=== PATIENT | male | born 1985 | race African-American/Black ===

== ENCOUNTER 2016-12-08 15:29 | Emergency (ER) | payer BC ==
--- NOTE | 2016-12-08 15:34 | ER Document Report ---
ED Medical Screen (RME) - General TRAVEL OUTSIDE OF THE [place] IN LAST 30 DAYS: No <BEAVERCIARA - Last Filed: 12/08/16 15:33> <LEW APPLE - Last Filed: 12/10/16 05:43> - General Stated Complaint: VOMITING/STOMACH PAIN Notes: 31 yo male c/o generalized abdominal pain with nausea and vomiting since last night. no diarrhea no fever abd soft (CIARA BEAVER) - Related Data Allergies/Adverse Reactions: No Known Allergies Allergy (Verified 12/08/16 15:33) Past Medical History Neurological Medical History: Reports: Hx Seizures - LAST SEIZURE 10-15 YRS AGO - Immunizations Immunizations up to date: No <CIARA BEAVER - Last Filed: 12/08/16 15:33> Course - Laboratory Result Diagrams: 12/08/16 15:35 12/08/16 15:35 <LEW APPLE - Last Filed: 12/10/16 05:43> - Vital Signs Vital signs: Temp Pulse Resp BP Pulse Ox 97.7 F 53 L 18 126/75 H 100 12/08/16 20:07 12/08/16 20:07 12/08/16 20:07 12/08/16 20:07 12/08/16 20:07 - Laboratory Laboratory results interpreted by me: 12/08/16 15:35 Sodium 149.5 H Chloride 108 H BUN 5 L AST 14 L Doctor's Discharge <BEAVERCIARA - Last Filed: 12/08/16 15:33> <LEW APPLE - Last Filed: 12/10/16 05:43> - Discharge Clinical Impression: Abdominal pain, Nausea and vomiting Condition: Stable Disposition: HOME, SELF-CARE Instructions: Family Physicians / Practices Additional Instructions: ABDOMINAL PAIN: There are many causes of abdominal pain. Pain can mean a serious problem requiring surgery (such as appendicitis). It can also be an innocent problem that goes away on its own (such as a viral infection). Often, time must pass to determine the cause of pain. The physician does not feel that hospitalization is necessary, at present. Things may change within the next 24 hours. Call the doctor or come back for re- examination if any problems occur, such as: (1) Pain that becomes more severe, steady, or becomes concentrated in one specific area. Also, pain that is more severe with movement or coughing. (2) Vomiting that persists or becomes more frequent. (3) Blood in the vomitus, urine, or bowel movements. Blood in the stool may have a tarry or black appearance. (4) Shaking chills or fever greater than 100 degrees F. (5) The abdomen becomes more distended or swollen. (6) Bowel movements cease. (7) Failure to improve as expected. VOMITING: Vomiting (or nausea without vomiting) can be caused by many other different problems. It can mean that something's wrong with the stomach, such as ulcers or inflammation or the intestinal tract, such as appendicitis. But it can also be a symptom of a problem that has nothing to do with the stomach or intestines. Vomiting is common with severe headaches, earaches, tonsillitis, and kidney infections, etc. We see it with pneumonia or heart attacks. Drugs can cause nausea and vomiting. Many abdominal problems cause vomiting; for example, gallstones, kidney stones, pancreatitis, and intestinal obstruction ( blocked bowels). In most cases, curing the vomiting depends on fixing the problem that caused it. For temporary relief, we may use an anti-nausea medicine. For home use, we can prescribe suppositories, chewable pills, pills that dissolve in the mouth, or liquid anti-nausea drugs. If the vomiting seems to be caused by a problem in the stomach, acid-suppressing drugs may be prescribed as well. It's important to avoid dehydration. Sip small amounts of clear liquids ( soft drinks, tea, broth, etc) . Try to take fluids frequently even if you are vomiting to prevent dehydration. Take increasing amounts of fluid and when liquids are being consumed successfully, advance to small amounts of bland food (toast, soups, mashed potatoes, etc.) until you are able to resume a regular diet. Avoid aspirin, tobacco, and alcohol. If the vomiting worsens, if the problem that's making you vomit worsens, or if there's evidence of bleeding in the stomach (such as black, tarry stool, or bloody or black vomit), you should return immediately. Also, return if abdominal pain worsens or becomes localized to one area or you develop high fever. Call your doctor if you aren't improved in 24 hours. VIRAL SYNDROME: The physician has diagnosed a viral infection. Viruses not only cause "colds," but can cause many different symptoms including generalized aching, fever, headache, cough, diarrhea, nausea, vomiting, and fatigue. The treatment, for the most part, is simply relief of symptoms. This means that antibiotics are usually not given. Rest, fluids, pain medications and, occasionally, medication for the specific symptoms that are most bothersome will be prescribed. Use good handwashing to avoid passing the virus to others. Shared toys should be cleaned with disinfectant. Clean the toilets, sinks, and counter surfaces in bathrooms. Launder clothing in hot water. Contact the physician if you develop any new or unusual symptoms such as severe headache, stiff neck, high fever, chest pain, productive cough, or shortness of breath. You should be rechecked if you don't see marked improvement within seven to 10 days. ANTINAUSEA MEDICATION: You have been given a medication to suppress nausea and vomiting. This type of medication can be given as a shot, pill, or suppository. It will usually last for many hours. Pills and shots usually last six to eight hours. For the typical illness, only one or two doses of the medication may be necessary. Mild lightheadedness may occur. This type of medicine can cause drowsiness. Do not drive or operate dangerous machinery while under its influence. Do not mix with alcohol. See your doctor at once if you have muscle spasms or tightness, or uncontrollable motions (particularly of the neck, mouth, or jaw). Persistent vomiting or severe lightheadedness should also be evaluated by the physician. FOLLOW-UP CARE: If you have been referred to a physician for follow-up care, call the physician s office for an appointment as you were instructed or within the next two days. If you experience worsening or a significant change in your symptoms, notify the physician immediately or return to the Emergency Department at any time for re-evaluation. Prescriptions: Ondansetron [Zofran Odt 4 mg Tablet] 1 tab PO Q6H #15 tab.rapdis Forms: Elevated Blood Pressure, Return to Work
[2016-12-08] MEDS ORDERED: ONDANSETRON 4 MG TAB.RAPDIS PO ONE (15:35)
[2016-12-08 16:00] LABS: ABSOLUTE BASOPHILS # (AUTO) 0.1 10^3/uL (0.0-0.2); ABSOLUTE EOSINOPHILS # (AUTO) 0.3 10^3/uL (0.0-0.6); ABSOLUTE LYMPHOCYTES (AUTO) 3.1 10^3/uL (0.5-4.7); ABSOLUTE MONOCYTES (AUTO) 0.7 10^3/uL (0.1-1.4); ABSOLUTE NEUT (AUTO) 4.2 10^3/uL (1.7-8.2); BASOPHILS % (AUTO) 0.8 % (0-2); EOSINOPHILS % (AUTO) 3.2 % (0-6); HEMATOCRIT 44.1 % (37.9-51.0); HGB HCT DIFFERENCE 0.9; MEAN CORPUSCULAR HEMOGLOBIN 29.9 pg (27.0-33.4); MEAN CORPUSCULAR HGB CONC 34.1 g/dL (32.0-36.0); MEAN CORPUSCULAR VOLUME 88 fl (80-97); MONOCYTES % (AUTO) 8.5 % (3-13); RED BLOOD COUNT 5.03 10^6/uL (4.35-5.55); RED CELL DISTRIBUTION WIDTH 12.6 % (11.5-14.0); SEGMENTED NEUTROPHILS % (AUTO) 50.5 % (42-78); WHITE BLOOD COUNT 8.4 10^3/uL (4.0-10.5)
[2016-12-08 16:12] LABS: APPEARANCE,URINE CLEAR; BILIRUBIN,URINE NEGATIVE (NEGATIVE); GLUCOSE, URINE NEGATIVE (NEGATIVE); KETONES,URINE NEGATIVE (NEGATIVE); LEUKOCYTE ESTERASE,URINE NEGATIVE (NEGATIVE); NITRITE,URINE NEGATIVE (NEGATIVE); PROTEIN,URINE NEGATIVE (NEGATIVE); UROBILINOGEN,URINE NEGATIVE mg/dL (<2.0)
[2016-12-08 16:20] LABS: ALANINE AMINOTRANSFERASE 24 U/L (21-72); ALBUMIN 4.4 g/dL (3.5-5.0); ALKALINE PHOSPHATASE 56 U/L (38-126); ANION GAP 13 (5-19); ASPARTATE AMINO TRANSFERASE 14 U/L (17-59); BILIRUBIN,DIRECT 0.1 mg/dL (0.0-0.4); BILIRUBIN,TOTAL 0.5 mg/dL (0.2-1.3); BLOOD UREA NITROGEN 5 mg/dL (7-20); CALCIUM 10.1 mg/dL (8.4-10.2); CARBON DIOXIDE 29 mmol/L (22-30); CHLORIDE 108 mmol/L (98-107); CREATININE RESULT 0.81 mg/dL (0.52-1.25); GLUCOSE 99 mg/dL (75-110); LIPASE 80.4 U/L (23-300); POTASSIUM 4.6 mmol/L (3.6-5.0); SODIUM 149.5 mmol/L (137-145); TOTAL PROTEIN 6.7 g/dL (6.3-8.2)
--- NOTE | 2016-12-08 19:56 | ER Document Report ---
ED GI/ - General Chief Complaint: Vomiting Stated Complaint: VOMITING/STOMACH PAIN Time seen by provider: 19:00 Mode of Arrival: Ambulatory Notes: 31-year-old male presents to ED for nausea and vomiting in generalized abdominal pain since last night. He states he had about a half a glass of vodka last night with his dental nothing since then. Last vomited at 2 PM had Zofran in RME and has drank a Gatorade in the emergency room. No nausea and vomiting at this time. Denies tenderness to the abdomen states that he does have a little cramps once in a while but no tenderness. TRAVEL OUTSIDE OF THE [place] IN LAST 30 DAYS: No - HPI Patient complains to provider of: Abdominal pain, Vomiting Onset: Yesterday Timing/Duration: Intermittent Quality of pain: Cramping Severity at maximum: Severe Severity in ED: Almost gone Pain Level: 1 Location: Other - Generalized Associated symptoms: Nausea, Vomiting Exacerbated by: Denies Relieved by: Denies Similar symptoms previously: Yes Recently seen / treated by doctor: No - Related Data Allergies/Adverse Reactions: No Known Allergies Allergy (Verified 12/08/16 15:33) Past Medical History - General Information source: Patient - Social History Smoking Status: Current Every Day Smoker Cigarette use (# per day): Yes Chew tobacco use (# tins/day): No Smoking Education Provided: Yes - less than 2 minutes Frequency of alcohol use: Occasional Drug Abuse: None Occupation: [employer] for [employer] Lives with: Alone Family History: DM Patient has suicidal ideation: No Patient has homicidal ideation: No - Past Medical History Cardiac Medical History: Reports: None Pulmonary Medical History: Reports: None EENT Medical History: Reports: None Neurological Medical History: Reports: Hx Seizures - LAST SEIZURE 10-15 YRS AGO Endocrine Medical History: Reports: None Renal/ Medical History: Reports: None Malignancy Medical History: Reports None GI Medical History: Reports: None Musculoskeltal Medical History: Reports None Skin Medical History: Reports None Psychiatric Medical History: Reports: None Traumatic Medical History: Reports: None Infectious Medical History: Reports: None Surgical Hx: Negative - Immunizations Immunizations up to date: No Review of Systems - Review of Systems Constitutional: Recent illness EENT: No symptoms reported Cardiovascular: No symptoms reported Respiratory: No symptoms reported Gastrointestinal: Abdominal pain, Nausea, Vomiting Genitourinary: No symptoms reported Male Genitourinary: No symptoms reported Musculoskeletal: No symptoms reported Skin: No symptoms reported Hematologic/Lymphatic: No symptoms reported Neurological/Psychological: No symptoms reported -: Yes All other systems reviewed and negative Physical Exam - Vital signs Vitals: Temp Pulse Resp BP Pulse Ox 98.4 F 91 16 136/87 H 94 12/08/16 15:32 12/08/16 15:32 12/08/16 15:32 12/08/16 15:32 12/08/16 15:32 Interpretation: Normal - General General appearance: Appears well, Alert - HEENT Head: Normocephalic, Atraumatic Eyes: Normal Pupils: PERRL - Respiratory Respiratory status: No respiratory distress Chest status: Nontender Breath sounds: Normal Chest palpation: Normal - Cardiovascular Rhythm: Regular Heart sounds: Normal auscultation Murmur: No - Abdominal Inspection: Normal Distension: No distension Bowel sounds: Normal Tenderness: Nontender. No: Tender Organomegaly: No organomegaly - Back Back: Normal, Nontender - Extremities General upper extremity: Normal inspection, Nontender, Normal color, Normal ROM , Normal temperature General lower extremity: Normal inspection, Nontender, Normal color, Normal ROM , Normal temperature, Normal weight bearing. No: Rosario's sign - Neurological Neuro grossly intact: Yes Cognition: Normal Orientation: AAOx4 George Coma Scale Eye Opening: Spontaneous [place] Coma Scale Verbal: Oriented George Coma Scale Motor: Obeys Commands George Coma Scale Total: 15 Speech: Normal Motor strength normal: LUE, RUE, LLE, RLE Sensory: Normal - Psychological Associated symptoms: Normal affect, Normal mood - Skin Skin Temperature: Warm Skin Moisture: Dry Skin Color: Normal Course - Re-evaluation Re-evalutation: 12/08/16 20:09 Patient states he is having some minimal cramping at times no abdominal tenderness states she has not had any vomiting since 2 PM was able to drink the entire Gatorade with no nausea or vomiting. States he would like a work note for today like to go back to work tomorrow. States he would like a prescription for the Zofran that he had earlier in case he gets nauseated again. - Vital Signs Vital signs: Temp Pulse Resp BP Pulse Ox 98.4 F 91 16 136/87 H 94 12/08/16 15:32 12/08/16 15:32 12/08/16 15:32 12/08/16 15:32 12/08/16 15:32 - Laboratory Result Diagrams: 12/08/16 15:35 12/08/16 15:35 Laboratory results interpreted by me: 12/08/16 15:35 Sodium 149.5 H Chloride 108 H BUN 5 L AST 14 L Discharge - Discharge Clinical Impression: Abdominal pain Qualifiers: Abdominal location: generalized Qualified Code(s): R10.84 - Generalized abdominal pain Nausea and vomiting Qualifiers: Vomiting type: unspecified Vomiting Intractability: non-intractable Qualified Code(s): R11.2 - Nausea with vomiting, unspecified Condition: Stable Disposition: HOME, SELF-CARE Instructions: Family Physicians / Practices Additional Instructions: ABDOMINAL PAIN: There are many causes of abdominal pain. Pain can mean a serious problem requiring surgery (such as appendicitis). It can also be an innocent problem that goes away on its own (such as a viral infection). Often, time must pass to determine the cause of pain. The physician does not feel that hospitalization is necessary, at present. Things may change within the next 24 hours. Call the doctor or come back for re- examination if any problems occur, such as: (1) Pain that becomes more severe, steady, or becomes concentrated in one specific area. Also, pain that is more severe with movement or coughing. (2) Vomiting that persists or becomes more frequent. (3) Blood in the vomitus, urine, or bowel movements. Blood in the stool may have a tarry or black appearance. (4) Shaking chills or fever greater than 100 degrees F. (5) The abdomen becomes more distended or swollen. (6) Bowel movements cease. (7) Failure to improve as expected. VOMITING: Vomiting (or nausea without vomiting) can be caused by many other different problems. It can mean that something's wrong with the stomach, such as ulcers or inflammation or the intestinal tract, such as appendicitis. But it can also be a symptom of a problem that has nothing to do with the stomach or intestines. Vomiting is common with severe headaches, earaches, tonsillitis, and kidney infections, etc. We see it with pneumonia or heart attacks. Drugs can cause nausea and vomiting. Many abdominal problems cause vomiting; for example, gallstones, kidney stones, pancreatitis, and intestinal obstruction ( blocked bowels). In most cases, curing the vomiting depends on fixing the problem that caused it. For temporary relief, we may use an anti-nausea medicine. For home use, we can prescribe suppositories, chewable pills, pills that dissolve in the mouth, or liquid anti-nausea drugs. If the vomiting seems to be caused by a problem in the stomach, acid-suppressing drugs may be prescribed as well. It's important to avoid dehydration. Sip small amounts of clear liquids ( soft drinks, tea, broth, etc) . Try to take fluids frequently even if you are vomiting to prevent dehydration. Take increasing amounts of fluid and when liquids are being consumed successfully, advance to small amounts of bland food (toast, soups, mashed potatoes, etc.) until you are able to resume a regular diet. Avoid aspirin, tobacco, and alcohol. If the vomiting worsens, if the problem that's making you vomit worsens, or if there's evidence of bleeding in the stomach (such as black, tarry stool, or bloody or black vomit), you should return immediately. Also, return if abdominal pain worsens or becomes localized to one area or you develop high fever. Call your doctor if you aren't improved in 24 hours. VIRAL SYNDROME: The physician has diagnosed a viral infection. Viruses not only cause "colds," but can cause many different symptoms including generalized aching, fever, headache, cough, diarrhea, nausea, vomiting, and fatigue. The treatment, for the most part, is simply relief of symptoms. This means that antibiotics are usually not given. Rest, fluids, pain medications and, occasionally, medication for the specific symptoms that are most bothersome will be prescribed. Use good handwashing to avoid passing the virus to others. Shared toys should be cleaned with disinfectant. Clean the toilets, sinks, and counter surfaces in bathrooms. Launder clothing in hot water. Contact the physician if you develop any new or unusual symptoms such as severe headache, stiff neck, high fever, chest pain, productive cough, or shortness of breath. You should be rechecked if you don't see marked improvement within seven to 10 days. ANTINAUSEA MEDICATION: You have been given a medication to suppress nausea and vomiting. This type of medication can be given as a shot, pill, or suppository. It will usually last for many hours. Pills and shots usually last six to eight hours. For the typical illness, only one or two doses of the medication may be necessary. Mild lightheadedness may occur. This type of medicine can cause drowsiness. Do not drive or operate dangerous machinery while under its influence. Do not mix with alcohol. See your doctor at once if you have muscle spasms or tightness, or uncontrollable motions (particularly of the neck, mouth, or jaw). Persistent vomiting or severe lightheadedness should also be evaluated by the physician. FOLLOW-UP CARE: If you have been referred to a physician for follow-up care, call the physician s office for an appointment as you were instructed or within the next two days. If you experience worsening or a significant change in your symptoms, notify the physician immediately or return to the Emergency Department at any time for re-evaluation. Prescriptions: Ondansetron [Zofran Odt 4 mg Tablet] 1 tab PO Q6H #15 tab.rapdis Forms: Elevated Blood Pressure, Return to Work
[2016-12-08 20:08] VITALS: BP 126/75
== END 2016-12-08 20:10 | disposition home or self-care (01) ==
LOC: ER 15:29
DX: R11.2 Nausea with vomiting, unspecified (principal); R10.84 Generalized abdominal pain; F17.210 Nicotine dependence, cigarettes, uncomplicated; Z71.6 Tobacco abuse counseling
CPT/HCPCS: 99284; 36415; 83690; 85025; 80053; 81001; S0119

== ENCOUNTER 2018-03-25 08:15 | Emergency (ER) | payer OTHER, BC ==
[2018-03-25 08:27] VITALS: BP 121/74
[2018-03-25] MEDS ORDERED: TETRACAINE HCL 0.5% OPH SOLN 2 ML ONE (08:56)
[2018-03-25] MEDS ORDERED: TETRACAINE HCL 0.5% OPH SOLN 4 ML OD ONE ×2 (09:00→09:15)
--- NOTE | 2018-03-25 09:04 | ER Document Report ---
HPI - HPI Patient complains to provider of: right eye irritation Onset: This morning Onset/Duration: Sudden Quality of pain: No pain, Other - feels like something in eye Pain Level: 2 Context: She presents emergency department with complaints of right eye irritation. Patient reports he works at the [employer] was wearing safety glasses and working with dust when he felt like something went in his eye. He reports he had to leave work. Reports he is not having any trouble seeing out of the eye just feels irritated like something is in it. Reports clear tears. Associated Symptoms: None Exacerbated by: Denies Relieved by: Denies Similar symptoms previously: No Recently seen / treated by doctor: No Past Medical History - General Information source: Patient - Social History Smoking Status: Current Every Day Smoker Cigarette use (# per day): Yes Chew tobacco use (# tins/day): No Frequency of alcohol use: Social Drug Abuse: None Occupation: [employer] Family History: DM Patient has suicidal ideation: No Patient has homicidal ideation: No Neurological Medical History: Reports: Hx Seizures - LAST SEIZURE 10-15 YRS AGO Renal/ Medical History: Denies: Hx Peritoneal Dialysis - Immunizations Immunizations up to date: No Vertical Provider Document - CONSTITUTIONAL Agree With Documented VS: Yes Exam Limitations: No Limitations General Appearance: WD/WN, No Apparent Distress - INFECTION CONTROL TRAVEL OUTSIDE OF THE [place] IN LAST 30 DAYS: No - HEENT HEENT: Atraumatic, Normocephalic, PERRLA. negative: Conjuctival Injection - NECK Neck: Normal Inspection, Supple - RESPIRATORY Respiratory: Breath Sounds Normal, No Respiratory Distress - CARDIOVASCULAR Cardiovascular: Regular Rate - MUSCULOSKELETAL/EXTREMETIES Musculoskeletal/Extremeties: MITCHELL MOLINA - NEURO Level of Consciousness: Awake, Alert, Appropriate Motor/Sensory: No Motor Deficit - DERM Integumentary: Warm, Dry Course - Re-evaluation Re-evalutation: 03/25/18 Tetracaine placed in the right eye patient reports immediate relief of irritation. Right eye exam benign. Patient instructed on plan of care to include follow-up with ophthalmology if he continues to feel like something is in his eye. - Vital Signs Vital signs: Temp Pulse Resp BP Pulse Ox 98.3 F 68 16 121/74 99 03/25/18 08:26 03/25/18 08:26 03/25/18 08:26 03/25/18 08:26 03/25/18 08:26 Procedures - Eye Procedure Right Eye Irrigated w/ Saline (ccs): 20 Alcaine Drops Administered: Yes - tetracaine Fluorescein applied: Right Slit lamp used: No Notes: 03/25/18 09:10 paez lamp utilized, patient reports immediate relief after application, no fb noted, no abrasion noted Discharge - Discharge Clinical Impression: Irritation of right eye Condition: Stable Disposition: HOME, SELF-CARE Instructions: Opthalmology Additional Instructions: *You have been evaluated for eye irritation *Good hand washing- Do not reuse wash clothes or towels after wiping eyes *Follow up with an financial planning assistant Tuesday if your eye is still bothering you *Return to ED for worsening condition, changes, needs, vision changes, pain Forms: Return to Work
[2018-03-25] MEDS ORDERED: TETRACAINE HCL 0.5% OPH SOLN 2 ML OD ONE (10:00)
== END 2018-03-25 09:27 | disposition home or self-care (01) ==
LOC: ER 08:15
DX: H57.8 Other specified disorders of eye and adnexa (principal); F17.210 Nicotine dependence, cigarettes, uncomplicated
CPT/HCPCS: 99283

== ENCOUNTER 2018-04-01 11:01 | Emergency (ER) | payer BC, OTHER ==
--- NOTE | 2018-04-01 11:49 | ER Document Report ---
ED General - General Chief Complaint: Abdominal Pain Stated Complaint: ABDOMINAL PAIN Time Seen by Provider: 04/01/18 11:47 TRAVEL OUTSIDE OF THE [place] IN LAST 30 DAYS: No - HPI Patient complains to provider of: Diarrhea abdominal pain Notes: Patient coming in for approximate 24 hours of diarrhea and lower abdominal pain. Patient states whenever he has abdominal pain he does have episodes of diarrhea. Patient denies any nausea vomiting. Denies any recent travel states no other sick contacts. Patient resting comfortably upon my evaluation. - Related Data Allergies/Adverse Reactions: No Known Allergies Allergy (Verified 04/01/18 11:02) Past Medical History - Social History Smoking Status: Unknown if Ever Smoked Family History: DM Neurological Medical History: Reports: Hx Seizures - LAST SEIZURE 10-15 YRS AGO Renal/ Medical History: Denies: Hx Peritoneal Dialysis - Immunizations Immunizations up to date: No Review of Systems - Review of Systems Constitutional: No symptoms reported EENT: No symptoms reported Cardiovascular: No symptoms reported Respiratory: No symptoms reported Gastrointestinal: Abdominal pain, Diarrhea Genitourinary: No symptoms reported Male Genitourinary: No symptoms reported Musculoskeletal: No symptoms reported Skin: No symptoms reported Hematologic/Lymphatic: No symptoms reported Neurological/Psychological: No symptoms reported -: Yes All other systems reviewed and negative Physical Exam - Vital signs Vitals: Temp Pulse Resp BP Pulse Ox 97.6 F 63 16 120/84 97 04/01/18 11:13 04/01/18 11:13 04/01/18 11:13 04/01/18 11:13 04/01/18 11:13 Interpretation: Normal - General General appearance: Appears well, Alert - HEENT Head: Normocephalic, Atraumatic Eyes: Normal Pupils: PERRL - Respiratory Respiratory status: No respiratory distress Chest status: Nontender Breath sounds: Normal Chest palpation: Normal - Cardiovascular Rhythm: Regular Heart sounds: Normal auscultation Murmur: No - Abdominal Inspection: Normal Distension: No distension Bowel sounds: Normal Tenderness: Nontender Organomegaly: No organomegaly - Back Back: Normal, Nontender - Extremities General upper extremity: Normal inspection, Nontender, Normal color, Normal ROM , Normal temperature General lower extremity: Normal inspection, Nontender, Normal color, Normal ROM , Normal temperature, Normal weight bearing. No: Rosario's sign - Neurological Neuro grossly intact: Yes Cognition: Normal Orientation: AAOx4 [place] Coma Scale Eye Opening: Spontaneous [place] Coma Scale Verbal: Oriented [place] Coma Scale Motor: Obeys Commands [place] Coma Scale Total: 15 Speech: Normal Motor strength normal: LUE, RUE, LLE, RLE Sensory: Normal - Psychological Associated symptoms: Normal affect, Normal mood - Skin Skin Temperature: Warm Skin Moisture: Dry Skin Color: Normal Course - Re-evaluation Re-evalutation: 04/01/18 13:14 The patient presents with abdominal pain without signs of peritonitis or other life-threatening or serious etiology. The patient appears stable for discharge and has been instructed to return immediately if the symptoms worsen in any way , or in 8-12hr if not improved for re-evaluation. The patient has been instructed to return if the symptoms worsen or change in any way. - Vital Signs Vital signs: Temp Pulse Resp BP Pulse Ox 97.6 F 62 18 128/85 H 100 04/01/18 11:13 04/01/18 13:34 04/01/18 13:34 04/01/18 13:34 04/01/18 13:34 Discharge - Discharge Clinical Impression: Abdominal pain Qualifiers: Abdominal location: unspecified location Qualified Code(s): R10.9 - Unspecified abdominal pain Diarrhea Qualifiers: Diarrhea type: unspecified type Qualified Code(s): R19.7 - Diarrhea, unspecified Condition: Good Disposition: HOME, SELF-CARE Instructions: Abdominal Pain ([facility]), Diarrhea, Nonspecific ([facility]), Gastroenteritis (adult) ([facility]) Additional Instructions: Your physical examination today x-ray did not show any critical pathology. More likely a virus causing her symptoms. I will send you home with Sang to help out with the abdominal pain that she may have the may take the Zofran as prescribed for any nausea that may occur. I would recommend sticking to a bland diet for the next few days. Return to ER symptoms worsen follow-up with your primary care physician. Prescriptions: Dicyclomine HCl [Bentyl 20 mg Tablet] 20 mg PO QID #20 tablet Ondansetron [Zofran Odt] 4 mg PO Q6 PRN #30 tab.rapdis PRN Reason: For Nausea/Vomiting Forms: Return to Work
--- NOTE | 2018-04-01 12:29 | RADIOLOGY REPORT (SQ) ---
EXAM DESCRIPTION: ACUTE ABDOMEN SERIES COMPLETED DATE/TIME: 04/01/2018 12:01 pm REASON FOR STUDY: diarrhea abd pain COMPARISON: None. NUMBER OF VIEWS: Three views. TECHNIQUE: Frontal chest, supine abdomen and upright/decubitus abdomen radiographic images acquired. LIMITATIONS: None. FINDINGS: CHEST: Lungs clear of infiltrates. FREE AIR: None. No abnormal gas collections. BOWEL GAS PATTERN: Nonobstructive pattern. No dilated loops or air fluid levels. CALCIFICATIONS: No suspicious calcifications. HARDWARE: None in the abdomen. SOFT TISSUES: No gross mass or suggestion of organomegaly. BONES: No acute fracture. No worrisome bone lesions. OTHER: No other significant finding. IMPRESSION: NO RADIOGRAPHIC EVIDENCE FOR ACUTE ABDOMINAL DISEASE. TECHNICAL DOCUMENTATION: JOB ID: [id number] [employer]- All Rights Reserved Reading location - IP/workstation name: [email or web address]
[2018-04-01 13:36] VITALS: BP 128/85
== END 2018-04-01 13:39 | disposition home or self-care (01) ==
LOC: ER 11:01
DX: R19.7 Diarrhea, unspecified (principal); R10.30 Lower abdominal pain, unspecified
CPT/HCPCS: 74022; 99284

== ENCOUNTER 2018-04-09 15:37 | Emergency (ER) | payer BC, OTHER ==
[2018-04-09 15:54] VITALS: BP 139/80
--- NOTE | 2018-04-09 16:37 | ER Document Report ---
ED Neck/Back Problem - General Chief Complaint: Pain Stated Complaint: NECK/LEG PAIN Time Seen by Provider: 04/09/18 16:05 Mode of Arrival: Ambulatory Information source: Patient Notes: 32-year-old male presents to ED for complaint of pain in his neck and then from his waist down. Patient has a hit history of seizures had not had a seizure in a long time. He states he is on Depakote ER that he has taken for a long time. He states the pain just started this morning when he woke up he did not remember any accident or injuries. Patient is alert and oriented respirations regular and unlabored. Sentences. He does have a droop to the left side of his face. He states that he had developed palsy in the past and is never really returned to normal. He states he has not had a CT since before this or after this. TRAVEL OUTSIDE OF THE [place] IN LAST 30 DAYS: No - HPI Patient complains to provider of: Pain, Neck Onset: This morning Where: Home, Indoors Onset: Gradual Timing: Still present Quality of pain: Burning, Sharp Severity: Severe Pain Level: 5 Recent injury: No Associated symptoms: Radiation to arm, Radiation to leg, Other - Neck and head pain pain down his legs Exacerbated by: Movement of neck Relieved by: Nothing Similar symptoms previously: No Recently seen / treated by doctor: No - Related Data Allergies/Adverse Reactions: No Known Allergies Allergy (Verified 04/01/18 11:02) Past Medical History - General Information source: Patient - Social History Smoking Status: Current Every Day Smoker Cigarette use (# per day): Yes - One half pack per day Smoking Education Provided: Yes - 4 minutes Frequency of alcohol use: Occasional Drug Abuse: None Occupation: [employer] Lives with: Alone Family History: DM Patient has suicidal ideation: No Patient has homicidal ideation: No - Past Medical History Cardiac Medical History: Reports: None Pulmonary Medical History: Reports: None EENT Medical History: Reports: None Neurological Medical History: Reports: Hx Seizures - LAST SEIZURE 10-15 YRS AGO , Other - Robertson's palsy Endocrine Medical History: Reports: None Renal/ Medical History: Reports: None Malignancy Medical History: Reports None GI Medical History: Reports: None Musculoskeletal Medical History: Reports None Skin Medical History: Reports None Psychiatric Medical History: Reports: None Traumatic Medical History: Reports: None Infectious Medical History: Reports: None Surgical Hx: Negative Past Surgical History: Reports: None - Immunizations Immunizations up to date: No Review of Systems - Review of Systems Constitutional: No symptoms reported EENT: No symptoms reported Cardiovascular: No symptoms reported Respiratory: No symptoms reported Gastrointestinal: No symptoms reported Genitourinary: No symptoms reported Male Genitourinary: No symptoms reported Musculoskeletal: Back pain, Muscle pain, Muscle stiffness, Neck pain Skin: No symptoms reported Hematologic/Lymphatic: No symptoms reported Neurological/Psychological: Other - Left-sided states has been present for about 6 years -: Yes All other systems reviewed and negative Physical Exam - Vital signs Vitals: Temp Pulse Resp BP Pulse Ox 98.9 F 62 18 139/80 H 98 04/09/18 15:51 04/09/18 15:51 04/09/18 15:51 04/09/18 15:51 04/09/18 15:51 Interpretation: Normal - General General appearance: Appears well, Alert - HEENT Head: Normocephalic, Atraumatic Eyes: Normal Pupils: PERRL Ears: Normal External canal: Normal Tympanic membrane: Normal Sinus: Normal Nasal: Normal Mouth/Lips: Normal Mucous membranes: Normal Pharynx: Normal Neck: Normal Notes: Left-sided facial droop patient states that has been there for 6 years since he had Robertson's palsy, patient has 5/5 strength to flexion extension and rotation of neck. He states he has some pain with any movement but has full range of motion of neck - Respiratory Respiratory status: No respiratory distress Chest status: Nontender Breath sounds: Normal Chest palpation: Normal - Cardiovascular Rhythm: Regular Heart sounds: Normal auscultation Murmur: No - Abdominal Inspection: Normal Distension: No distension Bowel sounds: Normal Tenderness: Nontender Organomegaly: No organomegaly - Back Back: Normal, Nontender - Extremities General upper extremity: Normal inspection, Nontender, Normal color, Normal ROM , Normal temperature General lower extremity: Normal inspection, Nontender, Normal color, Normal ROM , Normal temperature, Normal weight bearing. No: Rosario's sign - Neurological Neuro grossly intact: Yes Cognition: Normal Orientation: AAOx4 [place] Coma Scale Eye Opening: Spontaneous George Coma Scale Verbal: Oriented [place] Coma Scale Motor: Obeys Commands [place] Coma Scale Total: 15 Speech: Normal Motor strength normal: LUE, RUE, LLE, RLE Sensory: Normal - Psychological Associated symptoms: Normal affect, Normal mood - Skin Skin Temperature: Warm Skin Moisture: Dry Skin Color: Normal Course - Re-evaluation Re-evalutation: 04/09/18 21:[address] Martinez, he agreed that we should go ahead and do the CT of the head and neck. CT head and neck were both negative. Patient has full range of motion of head and neck and body. Patient instructed to follow- up with his neurologist who takes care of his seizures by: Them in the morning and schedule a follow-up appointment. Patient does not have any fevers at this time. Patient is able to walk with a even steady gait. Patient was discharged home. - Vital Signs Vital signs: Temp Pulse Resp BP Pulse Ox 98.9 F 62 18 139/80 H 98 04/09/18 15:51 04/09/18 15:51 04/09/18 15:51 04/09/18 15:51 04/09/18 15:51 - Diagnostic Test Radiology reviewed: Image reviewed, Reports reviewed Discharge - Discharge Clinical Impression: Neck pain, Body aches Condition: Stable Disposition: HOME, SELF-CARE Instructions: Family Physicians / Practices Additional Instructions: He was seen today for neck pain started this morning when he woke up. He denies any known injuries. CT of the neck and head are negative he stated that she had Robertson's palsy in the past and the drip to the left side of the face is been present for several years. You treated with ibuprofen and will be discharged home with instructions on Tylenol and ibuprofen and muscle relaxers. Please follow-up with your neurologist. USE OF TYLENOL (ACETAMINOPHEN): Acetaminophen may be taken for pain relief or fever control. It's much safer than aspirin, offering a wider range of "safe" dosages. It is safe during . Some brand names are Tylenol, Panadol, Datril, Anacin 3, Tempra, and Liquiprin. Acetaminophen can be repeated every four hours. The following are maximum recommended dosages: WEIGHT Dose Drops Elixir Chewable( 80mg) (LBS.) drprs=droppers tsp=teaspoon 6 40 mg 0.4 ml (1/2) 6-11 80 mg 0.8 ml (full) tsp 1 tab 12-16 120 mg 1 1/2 drprs 3/4 tsp 1 1/2 tabs 17-23 160 mg 2 drprs 1 tsp 2 tabs 24-30 240 mg 3 drprs 1 1/2 tsp 3 tabs 30-35 320 mg 2 tsp 4 tabs 36-41 360 mg 2 1/4 tsp 4 1/2 tabs 42-47 400 mg 2 1/2 tsp 5 tabs 48-53 480 mg 3 tsp 6 tabs 54-59 520 mg 3 1/4 tsp 6 1/2 tabs 60-64 560 mg 3 1/2 tsp 7 tabs 65-70 600 mg 3 3/4 tsp 7 1/2 tabs 71-76 640 mg 4 tsp 8 tabs 77-82 720 mg 4 1/2 tsp 9 tabs 83-88 800 mg 5 tsp 10 tabs >89 pounds or adults 650 mg to 900 mg Acetaminophen can be repeated every four hours. Maximum dose not to exceed 4000 mg a day. These maximum recommended dosages are slightly higher than the dosages written on the product container, but these dosages are very safe and below the toxic dosage for acetaminophen. USE OF [id number] IBUPROFEN: Ibuprofen (Advil, Nuprin, Medipren, Motrin IB) is a medication for fever and pain control. In addition, it has anti- inflammatory effects which may be beneficial, especially in the treatment of injuries. It's best to take ibuprofen with food. Persons with ulcer disease or allergy to aspirin should notify their physician of this before taking ibuprofen. Ibuprofen can be given every four to six hours, for a total of four doses daily. Age Pain or fever dose Antiinflammatory dose 6-8 yr 200 mg (1 tab) 200 mg (1 tab) 9-11 yr 200 mg (1 tab) 200-400 mg (1-2 tab) 11-14 yr 200-400 mg (1-2 tab) 400 mg (2 tab) 15-adult 400 mg (2 tab) 600 mg (3 tab) ICE PACKS: Apply ice packs frequently against the painful area. Many different schedules are recommended, such as "20 minutes on, 20 minutes off" or "one hour ice, two hours rest." If you need to work, you may need to go longer between ice treatments. You should plan to have the area ice packed AT LEAST one fourth of the time. The ice should be applied over the wrap, tape, or splint, or over a layer of cloth -- not directly against the skin. Some ice bags have a built-in cloth and can be put directly on the skin. WARM PACKS: After approximately two days, apply gentle heat (such as a heating pad or hot water bottle) for about 20 to 30 minutes about every two hours -- at least four times daily. Warmth and elevation will help you make a more rapid recovery , and will ease the pain considerably. Do not use HOT heat, and never apply heat for longer than 30 minutes. The continuous heat can invisibly damage skin and muscles -- even when no burn is seen on the surface. Damaged muscles can make you MORE sore. MUSCLE RELAXERS: Muscle relaxing medications are usually prescribed for acute muscle spasm or injury to the neck and back. They are often combined with antiinflammatory pain medication for increased relief. You may stop the muscle relaxer when the pain and stiffness have improved. Start the medication again if spasms recur. Muscle relaxers may cause drowsiness, especially with the first dose. Do not operate machinery or drive while under the effects of the medication. Most muscle relaxers last up to 24 hours. Do not combine the medication with alcohol. FOLLOW-UP CARE: If you have been referred to a physician for follow-up care, call the physician s office for an appointment as you were instructed or within the next two days. If you experience worsening or a significant change in your symptoms, notify the physician immediately or return to the Emergency Department at any time for re-evaluation. Prescriptions: Ibuprofen 600 mg PO Q6HP PRN #20 tablet PRN Reason: Cyclobenzaprine HCl [Flexeril 10 mg Tablet] 10 mg PO TIDP PRN #15 tab PRN Reason: Forms: Elevated Blood Pressure, Return to Work
--- NOTE | 2018-04-09 16:59 | RADIOLOGY REPORT (SQ) ---
EXAM DESCRIPTION: CT HEAD WITHOUT COMPLETED DATE/TIME: 04/09/2018 4:51 pm REASON FOR STUDY: pain in neck COMPARISON: None. TECHNIQUE: Axial images acquired through the brain without intravenous contrast. Images reviewed wi th bone, brain and subdural windows. Additional sagittal and coronal reconstructions were generated. Images stored on PACS. All CT scanners at this facility use dose modulation, iterative reconstruction, and/or weight based d osing when appropriate to reduce radiation dose to as low as reasonably achievable (ALARA). [facility]: Dose Right [facility]: CareDose [facility]: Dose Right [facility]: Teradose 4D [facility]: Smart [employer] RADIATION DOSE: CT Rad equipment meets quality standard of care and radiation dose reduction techniq ues were employed. CTDIvol: 53.2 mGy. DLP: 937 mGy-cm. mGy. LIMITATIONS: None. FINDINGS: VENTRICLES: Normal size and contour. CEREBRUM: No masses. No hemorrhage. No midline shift. No evidence for acute infarction. Normal gra y/white matter differentiation. No areas of low density in the white matter. CEREBELLUM: No masses. No hemorrhage. No alteration of density. No evidence for acute infarction. EXTRAAXIAL SPACES: No fluid collections. No masses. ORBITS AND GLOBE: No intra- or extraconal masses. Normal contour of globe without masses. CALVARIUM: No fracture. PARANASAL SINUSES: No fluid or mucosal thickening. SOFT TISSUES: No mass or hematoma. OTHER: No other significant finding. IMPRESSION: NORMAL BRAIN CT WITHOUT CONTRAST. EVIDENCE OF ACUTE STROKE: NO. COMMENT: Quality ID # [id number]: Final reports with documentation of one or more dose reduction techniques (e.g., Automated exposure control, adjustment of the mA and/or kV according to patient size, use of iterative reconstruction technique) TECHNICAL DOCUMENTATION: JOB ID: [id number] [employer]- All Rights Reserved Reading location - IP/workstation name: [email or web address]
--- NOTE | 2018-04-09 17:00 | RADIOLOGY REPORT (SQ) ---
EXAM DESCRIPTION: CT CERVICAL SPINE WITHOUT COMPLETED DATE/TIME: 04/09/2018 4:51 pm REASON FOR STUDY: pain in neck COMPARISON: None. TECHNIQUE: Axial images acquired through the cervical spine without intravenous contrast. Images re viewed with lung, soft tissue and bone windows. Reconstructed coronal and sagittal MPR images review ed. Images stored on PACS. All CT scanners at this facility use dose modulation, iterative reconstruction, and/or weight based d osing when appropriate to reduce radiation dose to as low as reasonably achievable (ALARA). [facility]: Dose Right [facility]: CareDose [facility]: Dose Right [facility]: Teradose 4D [facility]: [employer] RADIATION DOSE: CT Rad equipment meets quality standard of care and radiation dose reduction techniq ues were employed. CTDIvol: 22.2 mGy. DLP: 456 mGy-cm. mGy. LIMITATIONS: None. FINDINGS: ALIGNMENT: Anatomic. MINERALIZATION: Normal. VERTEBRAL BODIES: No fractures or dislocation. DISCS: No significant disc disease. FACETS, LATERAL MASSES, POSTERIOR ELEMENTS: No fractures. No dislocation. No acute findings. HARDWARE: None in the spine. VISUALIZED RIBS: No fractures. LUNG APICES AND SOFT TISSUES: No significant or acute findings. OTHER: No other significant finding. IMPRESSION: NO ACUTE OR SIGNIFICANT FINDINGS IN THE CERVICAL SPINE. TECHNICAL DOCUMENTATION: JOB ID: [id number] Quality ID # [id number]: Final reports with documentation of one or more dose reduction techniques (e.g., Au tomated exposure control, adjustment of the mA and/or kV according to patient size, use of iterative reconstruction technique) 2010 [employer]- All Rights Reserved Reading location - IP/workstation name: [email or web address]
== END 2018-04-09 17:40 | disposition home or self-care (01) ==
LOC: ER 15:37
DX: M54.2 Cervicalgia (principal); R29.810 Facial weakness; R51 Headache; M54.9 Dorsalgia, unspecified; M79.606 Pain in leg, unspecified; R56.9 Unspecified convulsions; Z79.899 Other long term (current) drug therapy; F17.210 Nicotine dependence, cigarettes, uncomplicated; Z71.6 Tobacco abuse counseling
CPT/HCPCS: 70450; 72125; 99284; 99406

== ENCOUNTER 2018-04-11 13:59 | Emergency (ER) | payer BC, OTHER ==
[2018-04-11 14:17] VITALS: BP 122/80
[2018-04-11] MEDS ORDERED: LIDOCAINE 5% (700 MG) TRANSDERMAL ADH..PATCH TP ONE (14:57)
[2018-04-11] MEDS ORDERED: NAPROXEN 250 MG TABLET PO ONE (14:57)
--- NOTE | 2018-04-11 15:00 | ER Document Report ---
ED Medical Screen (RME) - General Chief Complaint: Low Back Pain Stated Complaint: LEG PAIN Time Seen by Provider: 04/11/18 14:47 Mode of Arrival: Ambulatory Information source: Patient TRAVEL OUTSIDE OF THE [place] IN LAST 30 DAYS: No - HPI Patient complains to provider of: pain in the legs Onset: Last week Onset/Duration: Persistent Quality of pain: Other - Tightness in the legs - Related Data Allergies/Adverse Reactions: No Known Allergies Allergy (Verified 04/11/18 14:51) Past Medical History - Social History Chew tobacco use (# tins/day): No Frequency of alcohol use: Rare Drug Abuse: None Neurological Medical History: Reports: Hx Seizures - LAST SEIZURE 10-15 YRS AGO Renal/ Medical History: Denies: Hx Peritoneal Dialysis - Immunizations Immunizations up to date: No Physical Exam - Vital signs Vitals: Temp Pulse Resp BP Pulse Ox 98.3 F 69 16 122/80 99 04/11/18 14:16 04/11/18 14:16 04/11/18 14:16 04/11/18 14:16 04/11/18 14:16 Course - Vital Signs Vital signs: Temp Pulse Resp BP Pulse Ox 98.3 F 69 16 122/80 99 04/11/18 14:16 04/11/18 14:16 04/11/18 14:16 04/11/18 14:16 04/11/18 14:16
== END 2018-04-11 15:41 | disposition home or self-care (01) ==
LOC: ER 13:59
DX: M79.605 Pain in left leg (principal); M79.604 Pain in right leg
CPT/HCPCS: 99283

== ENCOUNTER 2018-07-26 07:13 | Emergency (ER) | payer BC, OTHER ==
[2018-07-26 07:19] VITALS: BP 130/87
--- NOTE | 2018-07-26 07:57 | ER Document Report ---
HPI - HPI Patient complains to provider of: cough/congestion Pain Level: 4 Context: Patient is a 33-year-old male presenting to the emergency department complaining of 3 days of cough, congestion and body aches. Patient states he also has a sore throat when he coughs. Patient denying fever. Patient's denying nausea, vomiting, diarrhea, shortness of breath, chest pain, abdominal pain, dysuria. Patient states he did take Tylenol extra strength at 0300 hrs. this morning. Past medical history: Epilepsy Medications: Depakote Allergies: None Surgical history: None Patient admits to cigarette smoking, denies illicit drug use, denies EtOH use. - REPRODUCTIVE Reproductive: DENIES: : Past Medical History - General Information source: Patient - Social History Smoking Status: Current Every Day Smoker Lives with: Family Family History: DM Neurological Medical History: Reports: Hx Seizures - LAST SEIZURE 10-15 YRS AGO Renal/ Medical History: Denies: Hx Peritoneal Dialysis - Immunizations Immunizations up to date: No Vertical Provider Document - CONSTITUTIONAL Agree With Documented VS: Yes Notes: GENERAL: Alert, interacts well. No acute distress. HEAD: Normocephalic, atraumatic. EYES: Pupils equal, round, and reactive to light. Extraocular movements intact. ENT: Oral mucosa moist, tongue midline. Nares patent, swollen turbinates bilaterally, TM's intact nonerythematous nonbulging. Pharynx within normal limits, nonerythematous no palatal petechiae or exudate noted NECK: Full range of motion. Supple. Trachea midline. No lymphadenopathy appreciated LUNGS: Clear to auscultation bilaterally, no wheezes, rales, or rhonchi. No respiratory distress. HEART: Regular rate and rhythm. No murmur ABDOMEN: Soft, non-tender. Non-distended. Bowel sounds present in all 4 quadrants. EXTREMITIES: Moves all 4 extremities spontaneously. No edema, normal radial and dorsalis pedis pulses bilaterally. No cyanosis. BACK: no cervical, thoracic, lumbar midline tenderness. No saddle anesthesia, normal distal neurovascular exam. NEUROLOGICAL: Alert and oriented x3. Normal speech. cranial nerves II through XII grossly intact. PSYCH: Normal affect, normal mood. SKIN: Warm, dry, normal turgor. No rashes or lesions noted. - INFECTION CONTROL TRAVEL OUTSIDE OF THE [place] IN LAST 30 DAYS: No Course - Re-evaluation Re-evalutation: 07/26/18 07:57 Patient is nontoxic-appearing vitals stable non-tachycardic. Well-hydrated. Discussed symptomatic treatments at home. Return precautions discussed - Vital Signs Vital signs: Temp Pulse Resp BP Pulse Ox 97.9 F 76 16 130/87 H 100 07/26/18 07:18 07/26/18 07:18 07/26/18 07:18 07/26/18 07:18 07/26/18 07:18 Discharge - Discharge Clinical Impression: Upper respiratory infection Qualifiers: URI type: unspecified viral URI Qualified Code(s): J06.9 - Acute upper respiratory infection, unspecified Condition: Stable Disposition: HOME, SELF-CARE Instructions: Upper Respiratory Illness ([facility]), Viral Syndrome ([facility]) Additional Instructions: As we discussed you have been seen and treated in the emergency room for an upper respiratory infection. Unfortunately these are caused by viruses will not respond to antibiotics. Please take medications as prescribed. Return to the emergency room for any other concerning symptoms. Please make an appointment with your primary care provider in the next 24-48 hours. Prescriptions: Benzonatate [Tessalon Perles 100 mg Capsule] 100 mg PO Q8HP PRN #40 capsule PRN Reason: Mometasone Furoate [Nasonex] 1 spray NS Q12 #1 spray.pump Pseudoephedrine HCl [Sudafed 12 Hour] 120 mg PO BID #10 tablet.er
== END 2018-07-26 08:20 | disposition home or self-care (01) ==
LOC: ER 07:13
DX: J06.9 Acute upper respiratory infection, unspecified (principal); B97.89 Other viral agents as the cause of diseases classified elsewhere; R05 Cough; J02.9 Acute pharyngitis, unspecified; F17.210 Nicotine dependence, cigarettes, uncomplicated; G40.909 Epilepsy, unspecified, not intractable, without status epilepticus; Z79.899 Other long term (current) drug therapy
CPT/HCPCS: 99283

== ENCOUNTER 2018-07-31 18:23 | Emergency (ER) | payer BC, OTHER ==
[2018-07-31] MEDS ORDERED: IPRATROPIUM/ALBUTEROL 0.5-2.5 MG/3 ML AMPUL NEB ONE (21:01)
[2018-07-31] MEDS ORDERED: NORMAL SALINE 1000 ML 1,000 ML IV ONE (21:01)
[2018-07-31] MEDS ORDERED: KETOROLAC TROMETHAMINE INJ/PF 30 MG/1 ML SDV IV ONE (21:01)
--- NOTE | 2018-07-31 21:03 | ER Document Report ---
ED Flu Like - General Chief Complaint: Flu Symptoms Stated Complaint: BODY ACHES,COUGH,CONGESTION Time Seen by Provider: 07/31/18 20:39 Mode of Arrival: Ambulatory Information source: Patient Notes: Patient presents complaining of generalized body aches for the past 8 days. Patient states he was here 5 days ago and diagnosed with a upper respiratory infection. Patient reports decreased appetite. Patient denies any nausea vomiting or diarrhea. Patient does report continued cough. TRAVEL OUTSIDE OF THE [place] IN LAST 30 DAYS: No - HPI Onset: Last week Timing/Duration: Persistent Quality of pain: Achy Pain Level: 3 Associated symptoms: Body/muscle aches, Nonproductive cough. denies: Chest pain , Diarrhea, Fever, Nausea, Vomiting, Shortness of breath, Sore throat Similar symptoms previously: Yes Recently seen / treated by doctor: Yes - Related Data Allergies/Adverse Reactions: No Known Allergies Allergy (Verified 04/11/18 14:51) Past Medical History - General Information source: Patient - Social History Smoking Status: Current Every Day Smoker Smoking Education Provided: Yes Frequency of alcohol use: None Drug Abuse: None Occupation: [employer] Family History: DM Neurological Medical History: Reports: Hx Seizures - LAST SEIZURE 10-15 YRS AGO Renal/ Medical History: Denies: Hx Peritoneal Dialysis Surgical Hx: Negative - Immunizations Immunizations up to date: No Review of Systems - Review of Systems Constitutional: Recent illness - Recent upper respiratory infection. denies: Fever EENT: No symptoms reported. denies: Throat pain Cardiovascular: No symptoms reported. denies: Chest pain Respiratory: Cough Gastrointestinal: Abdominal pain - Generalized body aches including the abdomen. denies: Nausea, Vomiting Genitourinary: No symptoms reported. denies: Dysuria, Flank pain Male Genitourinary: No symptoms reported Musculoskeletal: Muscle pain Skin: No symptoms reported. denies: Rash Hematologic/Lymphatic: No symptoms reported Neurological/Psychological: No symptoms reported. denies: Headaches Physical Exam - Vital signs Vitals: Temp Pulse Resp BP Pulse Ox 98.3 F 98 12 135/87 H 96 07/31/18 18:29 07/31/18 18:29 07/31/18 18:29 07/31/18 18:29 07/31/18 18:29 - General General appearance: Appears well, Alert In distress: None - HEENT Head: Normocephalic, Atraumatic Eyes: Normal Conjunctiva: Normal Nasal: Normal Mouth/Lips: Normal Neck: Normal, Supple. No: Lymphadenopathy - Respiratory Respiratory status: No respiratory distress Chest status: Nontender Breath sounds: Nonproductive cough, Wheezing Chest palpation: Normal - Cardiovascular Rhythm: Regular Heart sounds: S1 appreciated, S2 appreciated Murmur: No - Abdominal Inspection: Normal Distension: No distension Bowel sounds: Normal Tenderness: Tender - Left-sided abdominal tenderness. No: McBurney's point, Reyes's sign, Guarding Organomegaly: No organomegaly - Back Back: CVA tenderness - Left - Extremities General upper extremity: Normal inspection, Normal ROM General lower extremity: Normal inspection, Normal ROM - Neurological Neuro grossly intact: Yes Cognition: Normal George Coma Scale Eye Opening: Spontaneous George Coma Scale Verbal: Oriented George Coma Scale Motor: Obeys Commands George Coma Scale Total: 15 - Psychological Associated symptoms: Normal affect, Normal mood - Skin Skin Temperature: Warm Skin Moisture: Dry Skin Color: Normal Course - Re-evaluation Re-evalutation: 07/31/18 22:39 Patient continues to complain of generalized body aches. Patient states that he has body aches all over including his abdomen. Patient without any focal area of abdominal tenderness at this time. Patient with decreased wheezing after nebulizer treatment. Patient nontoxic in appearance. Suspect likely viral illness at this time. Patient with some leukocyte esterase noted on urinalysis. Patient denies any concerns about STD. Will culture the urine as well as add on gonorrhea chlamydia testing at this time. - Vital Signs Vital signs: Temp Pulse Resp BP Pulse Ox 98.1 F 68 12 125/81 97 07/31/18 23:33 07/31/18 23:33 07/31/18 18:29 07/31/18 23:33 07/31/18 23:33 - Laboratory Result Diagrams: 07/31/18 21:40 07/31/18 21:40 Laboratory results interpreted by me: 07/31/18 07/31/18 07/31/18 21:35 21:40 21:40 Seg Neutrophils % 41.4 L Monocytes % 14.6 H Basophils % 2.1 H Absolute Monocytes 1.5 H Carbon Dioxide 31 H ALT 12 L Urine Protein 30 H Urine Ketones TRACE H Urine Urobilinogen 4.0 H Ur Leukocyte Esterase TRACE H Labs- Entire Visit 07/31/18 07/31/1807/31/18 21:35 21:40 21:40 WBC 10.2 RBC 4.66 Hgb 14.9 Hct 42.6 MCV 91 MCH 32.0 MCHC 35.1 RDW 12.7 Plt Count 207 Seg Neutrophils % 41.4 L Lymphocytes % 40.1 Monocytes % 14.6 H Eosinophils % 1.8 Basophils % 2.1 H Absolute Neutrophils 4.2 Absolute Lymphocytes 4.1 Absolute Monocytes 1.5 H Absolute Eosinophils 0.2 Absolute Basophils 0.2 Sodium 143.3 Potassium 4.0 Chloride 100 Carbon Dioxide 31 H Anion Gap 12 BUN 20 Creatinine 0.90 Est GFR ( Amer) > 60 Est GFR (Non-Af Amer) > 60 Glucose 92 Calcium 9.2 Total Bilirubin 0.7 Direct Bilirubin 0.3 Neonat Total Bilirubin Not Reportable Neonat Direct Bilirubin Not Reportable Neonat Indirect Bili Not Reportable AST 25 ALT 12 L Alkaline Phosphatase 60 Total Protein 7.7 Albumin 4.3 Lipase 108.7 Urine Color YELLOW Urine Appearance CLEAR Urine pH 7.0 Ur Specific [place] 1.027 Urine Protein 30 H Urine Glucose (UA) NEGATIVE Urine Ketones TRACE H Urine Blood NEGATIVE Urine Nitrite NEGATIVE Urine Bilirubin NEGATIVE Urine Urobilinogen 4.0 H Ur Leukocyte Esterase TRACE H Urine WBC (Auto) 6 Urine RBC (Auto) 2 Squamous Epi Cells Auto 3 Urine Mucus (Auto) RARE Urine Ascorbic Acid NEGATIVE - Diagnostic Test Radiology reviewed: Reports reviewed Discharge - Discharge Clinical Impression: Viral illness, Cough, Wheezing, Myalgia Condition: Stable Disposition: HOME, SELF-CARE Instructions: Bronchodilators ([facility]), Bronchospasm ([facility]), Upper Respiratory Illness ([facility]), Viral Syndrome ([facility]) Additional Instructions: Return immediately for any new or worsening symptoms Followup with your primary care provider, call tomorrow to make a followup appointment Urine culture is pending, we will call if you need any different treatment Prescriptions: Prednisone [Deltasone 10 mg Tablet] 10 mg PO ASDIR PRN #21 tablet PRN Reason: Forms: Smoking Cessation Education, Return to Work Referrals: [facility] [Provider Group] - Follow up as needed [facility] [Provider Group] - Follow up as needed
[2018-07-31 21:58] LABS: ABSOLUTE BASOPHILS # (AUTO) 0.2 10^3/uL (0.0-0.2); ABSOLUTE EOSINOPHILS # (AUTO) 0.2 10^3/uL (0.0-0.6); ABSOLUTE LYMPHOCYTES (AUTO) 4.1 10^3/uL (0.5-4.7); ABSOLUTE MONOCYTES (AUTO) 1.5 10^3/uL (0.1-1.4); ABSOLUTE NEUT (AUTO) 4.2 10^3/uL (1.7-8.2); BASOPHILS % (AUTO) 2.1 % (0-2); EOSINOPHILS % (AUTO) 1.8 % (0-6); HEMATOCRIT 42.6 % (37.9-51.0); HEMOGLOBIN 14.9 g/dL (13.5-17.0); LYMPHOCYTES % (AUTO) 40.1 % (13-45); MEAN CORPUSCULAR HGB CONC 35.1 g/dL (32.0-36.0); MEAN CORPUSCULAR VOLUME 91 fl (80-97); MONOCYTES % (AUTO) 14.6 % (3-13); PLATELET COUNT 207 10^3/uL (150-450); RED BLOOD COUNT 4.66 10^6/uL (4.35-5.55); RED CELL DISTRIBUTION WIDTH 12.7 % (11.5-14.0); SEGMENTED NEUTROPHILS % (AUTO) 41.4 % (42-78); TOTAL CELLS COUNTED % (AUTO) 100 %; WHITE BLOOD COUNT 10.2 10^3/uL (4.0-10.5)
--- NOTE | 2018-07-31 22:09 | RADIOLOGY REPORT (SQ) ---
EXAM DESCRIPTION: XR ABDOMEN SUPINE AND ERECT WITH CHEST (ABD ACUTE SERIES) COMPLETED DATE/TME: 07/31/2018 21:01 CLINICAL HISTORY: 33 years, Male, cough, abd pain Findings: Mild amount of stool in the colon. Moderate bilateral hip degenerative changes with evidence for avascular necrosis. Heart is not enlarged. Lungs are clear. No pneumothorax. No dilated loops of bowel to suggest obstruction. IMPRESSION: No evidence for bowel obstruction. No acute cardiopulmonary disease.
[2018-07-31 22:20] LABS: ALANINE AMINOTRANSFERASE 12 U/L (21-72); ALBUMIN 4.3 g/dL (3.5-5.0); ALKALINE PHOSPHATASE 60 U/L (38-126); ANION GAP 12 (5-19); ASPARTATE AMINO TRANSFERASE 25 U/L (17-59); BILIRUBIN,DIRECT 0.3 mg/dL (0.0-0.4); BILIRUBIN,TOTAL 0.7 mg/dL (0.2-1.3); BLOOD UREA NITROGEN 20 mg/dL (7-20); CALCIUM 9.2 mg/dL (8.4-10.2); CARBON DIOXIDE 31 mmol/L (22-30); CHLORIDE 100 mmol/L (98-107); GLUCOSE 92 mg/dL (75-110); LIPASE 108.7 U/L (23-300); SODIUM 143.3 mmol/L (137-145); TOTAL PROTEIN 7.7 g/dL (6.3-8.2)
[2018-07-31 22:24] LABS: APPEARANCE,URINE CLEAR; BILIRUBIN,URINE NEGATIVE (NEGATIVE); COLOR,URINE YELLOW; GLUCOSE, URINE NEGATIVE (NEGATIVE); KETONES,URINE TRACE mg/dL (NEGATIVE); LEUKOCYTE ESTERASE,URINE TRACE (NEGATIVE); NITRITE,URINE NEGATIVE (NEGATIVE); PROTEIN,URINE 30 mg/dL (NEGATIVE); URINE SPECIFIC GRAVITY 1.027
[2018-07-31] MEDS ORDERED: ALBUTEROL SULFATE HFA (90 MCG/PUFF) 8 GM MDI (1 MDI/ER DISP) IH ONE (22:40)
[2018-07-31] MEDS ORDERED: HYDROCODONE/ACETAMINOPHEN 5-325 MG (6 TAB/ER DISP) PO PRN (22:43)
[2018-07-31 23:37] VITALS: BP 125/81
[2018-08-01 00:39] LABS: CHLAM PCR NOT DETECTED (NOT DETECT); GON PCR NOT DETECTED (NOT DETECT)
== END 2018-07-31 23:45 | disposition home or self-care (01) ==
LOC: ER 18:23
DX: B34.9 Viral infection, unspecified (principal); R05 Cough; R06.2 Wheezing; M79.10 Myalgia, unspecified site; R09.81 Nasal congestion; R63.0 Anorexia; R10.84 Generalized abdominal pain; F17.200 Nicotine dependence, unspecified, uncomplicated
CPT/HCPCS: 94640; 99284; 96361; 96374; 36415; 87086; 83690; 85025; 80053; 81001; 87491; 87591; 74022; J1885; J7030; J3490; J7620

== ENCOUNTER 2018-12-02 14:44 | Emergency (ER) | payer BC, OTHER ==
[2018-12-02] MEDS ORDERED: OXYCODONE-ACETAMINOPHEN 5-325 MG TABLET PO ONE (15:06)
--- NOTE | 2018-12-02 15:09 | ER Document Report ---
ED Hip Pain/Injury - General Stated Complaint: RIGHT HIP PAIN Time Seen by Provider: 12/02/18 15:00 Mode of Arrival: Stretcher Information source: Patient TRAVEL OUTSIDE OF THE [place] IN LAST 30 DAYS: No - HPI Patient complains to provider of: Pain, Hip Occurred: This morning Where: Home Onset/Duration: Sudden Quality of pain: Achy Severity: Moderate Pain Level: 2 Notes: Patient is a 33-year-old male presenting to the morning, he denies any injury or fall, no history of previous pain in this area, he denies a fever, no numbness or tingling to his extremity, no low back pain, no bowel or bladder dysfunction, no saddle anesthesia, patient reports that he stands on his feet for work throughout the day, he works as a sorter at the [employer], he denies any history of sickle cell disease - Related Data Allergies/Adverse Reactions: No Known Allergies Allergy (Verified 04/11/18 14:51) Past Medical History - General Information source: Patient - Social History Smoking Status: Unknown if Ever Smoked Family History: DM Neurological Medical History: Reports: Hx Seizures - LAST SEIZURE 10-15 YRS AGO Renal/ Medical History: Denies: Hx Peritoneal Dialysis - Immunizations Immunizations up to date: No Review of Systems - Review of Systems Constitutional: No symptoms reported EENT: No symptoms reported Cardiovascular: No symptoms reported Respiratory: No symptoms reported Gastrointestinal: No symptoms reported Genitourinary: No symptoms reported Male Genitourinary: No symptoms reported Musculoskeletal: See HPI Skin: No symptoms reported Hematologic/Lymphatic: No symptoms reported Neurological/Psychological: No symptoms reported -: Yes All other systems reviewed and negative Physical Exam - Vital signs Interpretation: Normal - General General appearance: Appears well, Alert - HEENT Head: Normocephalic, Atraumatic Eyes: Normal Pupils: PERRL - Respiratory Respiratory status: No respiratory distress Chest status: Nontender Breath sounds: Normal Chest palpation: Normal - Cardiovascular Rhythm: Regular Heart sounds: Normal auscultation Murmur: No - Abdominal Inspection: Normal Distension: No distension Bowel sounds: Normal Tenderness: Nontender Organomegaly: No organomegaly - Back Back: Normal, Nontender - Extremities General upper extremity: Normal inspection, Nontender, Normal color, Normal ROM, Normal temperature General lower extremity: No: Rosario's sign Hip: Tender - Palpate in the right inguinal crease, pain with range of motion testing, distal sensation and motor is intact - Neurological Neuro grossly intact: Yes Cognition: Normal Orientation: AAOx4 [place] Coma Scale Eye Opening: Spontaneous [place] Coma Scale Verbal: Oriented George Coma Scale Motor: Obeys Commands George Coma Scale Total: 15 Speech: Normal Motor strength normal: LUE, RUE, LLE, RLE Sensory: Normal - Psychological Associated symptoms: Normal affect, Normal mood - Skin Skin Temperature: Warm Skin Moisture: Dry Skin Color: Normal Course - Re-evaluation Re-evalutation: 12/02/18 16:05 Imaging findings discussed with patient at bedside which are insistent with sign ificant bilateral degenerative changes with collapse of the femoral head on the right side, patient will be provided with a prescription for high-dose ibuprofen and instructions for follow-up with orthopedics, advised that he will likely need a hip replacement in the future if his pain continues and makes it difficult for him to walk, he actually called his mother and had her on speaker phone while I was going over the results so she has been informed as well, patient will be discharged and advised to return if symptoms worsen in any way, patient acknowledges understanding and agreement with this plan - Diagnostic Test Radiology reviewed: Image reviewed, Reports reviewed Discharge - Discharge Clinical Impression: Osteoarthritis, hip, bilateral Qualifiers: Osteoarthritis type: unspecified Qualified Code(s): M16.0 - Bilateral primary osteoarthritis of hip Condition: Stable Disposition: HOME, SELF-CARE Instructions: Osteoarthritis ([facility]) Additional Instructions: Follow up with your primary care provider and an orthopedic surgeon in one to 2 days. Return to the emergency room immediately if symptoms worsen or any additional concerns. Prescriptions: Ibuprofen [Motrin 600 Mg Tablet] 600 mg PO TID #30 tablet Oxycodone HCl/Acetaminophen [Percocet 5-325 mg Tablet] 1 - 2 tab PO ASDIR PRN #10 tablet PRN Reason: Forms: Return to Work
--- NOTE | 2018-12-02 16:00 | RADIOLOGY REPORT (SQ) ---
EXAM DESCRIPTION: HIP RIGHT AP/LATERAL COMPLETED DATE/TIME: 12/02/2018 3:38 pm REASON FOR STUDY: pain COMPARISON: None. NUMBER OF VIEWS: Two views. TECHNIQUE: AP pelvis and additional frog-leg view of the right hip. LIMITATIONS: None. FINDINGS: MINERALIZATION: Normal. RIGHT HIP: No fracture or dislocation. Severe arthrosis and collapse of the lateral femoral head. LEFT HIP: No fracture or dislocation. Severe arthrosis and collapse of the lateral femoral head. PUBIS AND ISCHIUM: No fracture. PELVIS: No fracture. SACRUM: No fracture or dislocation. No worrisome bone lesions. LOWER LUMBAR SPINE: No fracture or dislocation. No worrisome bone lesions. No significant disc disea se. SOFT TISSUES: No findings. OTHER: No other significant finding. IMPRESSION: No fracture or dislocation. Severe bilateral hip arthrosis and collapse of the lateral femoral head. TECHNICAL DOCUMENTATION: JOB ID: [id number] [place]-72 2010 [employer]- All Rights Reserved Reading location - IP/workstation name: [email or web address]
[2018-12-02 17:25] VITALS: BP 129/88
== END 2018-12-02 17:26 | disposition home or self-care (01) ==
LOC: ER 14:44
DX: M16.0 Bilateral primary osteoarthritis of hip (principal); M25.551 Pain in right hip
CPT/HCPCS: 99283

== ENCOUNTER 2019-10-18 10:14 | Emergency (ER) | payer BC, OTHER ==
[2019-10-18] MEDS ORDERED: IBUPROFEN 600 MG TABLET PO ONE (10:56)
--- NOTE | 2019-10-18 10:58 | ER Document Report ---
HPI - HPI Time Seen by Provider: 10/18/19 10:51 Pain Level: 5 Context: CHIEF COMPLAINT: Flu symptoms for 3 days HPI: 34-year-old male presenting to the emergency department complaining of flu symptoms over the last 3 days. Has had cough, sore throat, generalized body ache. No fever ROS: See HPI - all other systems were reviewed and are otherwise negative Constitutional: no fever Eyes: no drainage, no blurred vision ENT: no runny nose, positive sore throat Cardiovascular: no chest pain Resp: no SOB, positive cough GI: no vomiting, no diarrhea, no abdominal pain : no dysuria Integumentary: no rash Allergy: no hives Musculoskeletal: Positive myalgia Neurological: no numbness/tingling, no weakness MEDICATIONS: I agree with the patient medications as charted by the RN. ALLERGIES: I agree with the allergies as charted by the RN. PAST MEDICAL HISTORY/PAST SURGICAL HISTORY: Reviewed and agree as charted by RN. SOCIAL HISTORY: Reviewed and agree as charted by RN. FAMILY HISTORY: No significant familial comorbid conditions directly related to patient complaint EXAM: Reviewed vital signs as charted by RN. CONSTITUTIONAL: Alert and oriented and responds appropriately to questions. Well-appearing; well-nourished, mild distress secondary to discomfort HEAD: Normocephalic; atraumatic EYES: PERRL; Conjunctivae clear, sclerae non-icteric ENT: normal nose; clear rhinorrhea; moist mucous membranes; mild pharyngeal erythema is noted, no uvula edema or deviation, no tonsillar hypertrophy, phonation normal NECK: Supple without meningismus; non-tender; no cervical lymphadenopathy, no masses CARD: RRR; no murmurs, no clicks, no rubs, no gallops; symmetric distal pulses RESP: Normal chest excursion without splinting or tachypnea; breath sounds clear and equal bilaterally; no wheezes, no rhonchi, no rales, pulse oximetry 98% on room air not hypoxic ABD/GI: Normal bowel sounds; non-distended; soft, non-tender, no rebound, no guarding; no palpable organomegaly or masses. BACK: The back appears normal and is non-tender to palpation, there is no CVA tenderness EXT: Normal ROM in all joints; non-tender to palpation; no cyanosis, no effusions, no edema SKIN: Normal color for age and race; warm; dry; good turgor; no acute lesions noted NEURO: Moves all extremities equally; Motor and sensory function intact PSYCH: The patient's mood and manner are appropriate. Grooming and personal hygiene are appropriate. MDM: 34-year-old male with flulike symptoms will check flu and strep - CONSTITUTIONAL Constitutional: DENIES: Chills - EENT EENT: REPORTS: Sore Throat - NEURO Neurology: REPORTS: Headache - REPRODUCTIVE Reproductive: DENIES: : Past Medical History - Social History Smoking Status: Current Every Day Smoker Chew tobacco use (# tins/day): No Frequency of alcohol use: Social Drug Abuse: None Family History: DM Patient has suicidal ideation: No Patient has homicidal ideation: No Neurological Medical History: Reports: Hx Seizures - LAST SEIZURE 10-15 YRS AGO Renal/ Medical History: Denies: Hx Peritoneal Dialysis - Immunizations Immunizations up to date: No Vertical Provider Document - INFECTION CONTROL TRAVEL OUTSIDE OF THE [place] IN LAST 30 DAYS: No Course - Re-evaluation Re-evalutation: 10/18/19 12:12 Rapid strep and influenza testing negative. This is still likely a viral etiology. Will treat symptomatically, follow-up PCP, return if cough worsens or develops fever 10/18/19 12:12 - Vital Signs Vital signs: Temp Pulse Resp BP Pulse Ox 99.3 F 97 14 143/87 H 98 10/18/19 10:20 10/18/19 10:20 10/18/19 10:20 10/18/19 10:20 10/18/19 10:20 Discharge - Discharge Clinical Impression: Influenza-like illness Condition: Stable Disposition: HOME, SELF-CARE Additional Instructions: Motrin Tylenol consistently for fever or body ache. Mucinex for cough. Rapid strep testing and influenza testing today was negative but this is still likely a viral etiology at this point. If you develop worsening cough or develop fever greater than 101 return for reevaluation otherwise follow-up with primary care provider Prescriptions: Ibuprofen [Motrin 600 Mg Tablet] 600 mg PO TID #15 tablet Guaifenesin/Dextromethorphan [Mucinex Dm ER 600-30 mg Tablet] 1 each PO BID #20 tab.er.12h Forms: Return to Work
[2019-10-18 12:05] LABS: A TYPE INFLUENZA AG NEGATIVE (NEGATIVE); B INFLUENZA AG NEGATIVE (NEGATIVE)
[2019-10-18 12:25] VITALS: BP 131/85
== END 2019-10-18 12:25 | disposition home or self-care (01) ==
LOC: ER 10:14
DX: J11.1 Influenza due to unidentified influenza virus with other respiratory manifestations (principal); M79.10 Myalgia, unspecified site; F17.200 Nicotine dependence, unspecified, uncomplicated
CPT/HCPCS: 87070; 87804; 87880

== ENCOUNTER 2020-01-31 13:05 | Emergency (ER) | payer BC, OTHER ==
[2020-01-31] MEDS ORDERED: LORAZEPAM INJ 2 MG/1 ML VIAL IV ONE (13:11)
--- NOTE | 2020-01-31 13:13 | ER Document Report ---
ED General - General Stated Complaint: POSSIBLE SEIZURE Notes: 34-year-old male with epilepsy on Depakote presents with seizure. Working at [employer] center, had a generalized seizure. May have hit his head? He has a mild headache not unlike previous seizures. He has not had a seizure in months that he is compliant with Depakote but has not been sleeping well. Drugs alcohol etc. Witnessed. Feels better now. Blood sugar vital signs normal before. TRAVEL OUTSIDE OF THE [place] IN LAST 30 DAYS: No - Related Data Allergies/Adverse Reactions: No Known Allergies Allergy (Verified 01/31/20 13:28) Past Medical History - Social History Smoking Status: Never Smoker Family History: DM Neurological Medical History: Reports: Hx Seizures - LAST SEIZURE 10-15 YRS AGO Renal/ Medical History: Denies: Hx Peritoneal Dialysis - Immunizations Immunizations up to date: No Review of Systems - Review of Systems Notes: REVIEW OF SYSTEMS GEN: Denies fever, chills, weight loss ENT: Denies sore throat, nasal discharge, ear pain EYES: Denies blurry vision, eye pain, discharge CV: Denies chest pain, palpitations, edema RESP: Denies cough, shortness of breath, wheezing GI: Denies abdominal pain, nausea, vomiting, diarrhea MSK: Denies joint pain/swelling, edema, SKIN: Denies rash, skin lesions LYMPH: Denies swollen glands/lymph nodes NEURO: Seizure activity, mild headache PSYCH: Denies depression, suicidal or homicidal ideation PHYSICAL EXAMINATION General: No acute distress, well-nourished Head:? Mild forehead erythema without hematoma or laceration normocephalic ENT: Mouth normal, oropharynx moist, no exudates or tonsillar enlargement Eyes: Conjunctiva normal, pupils equal, lids normal Neck: No JVD, supple, no guarding CVS: Normal rate, regular rhythm, no murmurs Resp: No resp distress, equal and normal breath sounds bilaterally GI: Nondistended, soft, no tenderness to palpation, no rebound or guarding Ext: No deformities, no edema, normal range of motion in upper and lower ext Back: No CVA or midline TTP Skin: No rash, warm Lymphatic: No lymphadeopathy noted Neuro: Awake, alert. Face symmetric. GCS 15. Extremities no clonus. Physical Exam - Vital signs Vitals: Temp Resp Pulse Ox 99.3 F 12 95 01/31/20 13:08 01/31/20 13:08 01/31/20 13:08 Course - Re-evaluation Re-evalutation: 01/31/20 14:15 Breakthrough seizure normal neuro exam no obvious head trauma, symptoms improving rapidly Ativan given to prevent further seizure Valproate slightly subtherapeutic. Advised to talk to primary about increasing dose as well as get extra sleep. Patient is stable for discharge. I have discussed with the patient there likely diagnosis, aftercare plan, follow-up plans and my usual and customary return precautions. They verbalized understanding of this. - Vital Signs Vital signs: Temp Pulse Resp BP Pulse Ox 99.3 F 16 148/107 H 95 01/31/20 13:29 01/31/20 13:15 01/31/20 13:15 01/31/20 13:15 - Laboratory Result Diagrams: 01/31/20 13:10 Laboratory results interpreted by me: 01/31/20 13:10 Valproic Acid 38.5 L Discharge - Discharge Clinical Impression: Breakthrough seizure Condition: Good Disposition: HOME, SELF-CARE Instructions: Seizure, Known Epileptic ([facility]) Additional Instructions: Follow-up with your primary care neurologist as you may need an increase in your dosing of valproic acid
[2020-01-31 13:35] LABS: ANION GAP 13 (5-19); BLOOD UREA NITROGEN 13 mg/dL (7-20); CALCIUM 9.8 mg/dL (8.4-10.2); CARBON DIOXIDE 22 mmol/L (22-30); CHLORIDE 104 mmol/L (98-107); GLUCOSE 99 mg/dL (75-110); POTASSIUM 4.5 mmol/L (3.6-5.0)
[2020-01-31 14:53] VITALS: BP 123/89
== END 2020-01-31 14:25 | disposition home or self-care (01) ==
LOC: ER 13:05
DX: G40.909 Epilepsy, unspecified, not intractable, without status epilepticus (principal); Z79.899 Other long term (current) drug therapy; R51 Headache
CPT/HCPCS: 99284; 96374; 36415; 80048; 80164; J2060